=== PATIENT | male | born 1935 | race Caucasian/White ===

== ENCOUNTER 2020-01-03 17:42 | Inpatient (IN) | payer MEDICARE ==
[~2020-01-03] VITALS: Ht 190.5 cm; Wt 111.2 kg
[~2020-01-03 17:42] MED LIST: BACTRIM DS TABL1 TAB PO; BETAPACE 80 MG80 MG PO; COLACE100 MG PO; DOXYCYCLINE HY100 M2 PO; DULCOLAX5 MG PO; FLAGYL500 MG PO; FLOMAX0.4 MG PO; GLUCOPHAGE500 MG PO; K-DUR20 MEQ PO; LASIX20 MG PO; LEVAQUIN500 MG PO; LIPITOR40 MG PO; LISINOPRIL10 MG PO; LORTAB 5/500 TA1 TA2 PO; MOBIC7.5 MG PO; NORCO 7.5-3251 EACH GT; ONGLYZA5 MG PO; PRADAXA75 MG PO; PROTONIX40 MG PO; TYLENOL 325 MG325 MG PO; VESICARE5 MG PO
[2020-01-03] MEDS ORDERED: LISINOPRIL5 MG PO (18:13)
[2020-01-03] MEDS ORDERED: MOBIC7.5 MG PO (18:13)
[2020-01-03] MEDS ORDERED: ELIQUIS5 MG PO (18:13)
[2020-01-03] MEDS ORDERED: GLUCOPHAGE500 MG PO (18:14)
[2020-01-03] MEDS ORDERED: BETAPACE 80 MG80 MG PO (18:14)
[2020-01-03] MEDS ORDERED: K-DUR20 MEQ PO (18:14)
[2020-01-03] MEDS ORDERED: FUROSEMIDE20 MG PO (18:14)
[2020-01-03] MEDS ORDERED: LIPITOR20 MG PO (18:15)
[2020-01-03] MEDS ORDERED: JANUVIA50 MG PO (18:15)
[2020-01-03] MEDS ORDERED: PROTONIX40 MG PO (18:15)
[2020-01-03] MEDS ORDERED: HYDROCODON-ACET15 ML PO (18:16)
[2020-01-03 18:44] LABS: BASOPHILS 0.1 % (0-2); EOSINOPHILS 0.1 % (0-7); HEMATOCRIT 39.5 % (42.0-54.0); HEMOGLOBIN 12.7 g/dL (13.5-17.5); IMMATURE GRANULOCYTES 0.2 % (0-5); LYMPHOCYTES 8.9 % (15-50); MCH 30.2 pg (26.0-34.0); MCHC 32.2 g/dL (31.0-37.0); MEAN PLATELET VOLUME 9.4 fL (7.4-10.4); MONOCYTES 10.5 % (2-11); NEUTROPHILS 80.2 % (40-80); RDW 14.4 % (11.5-14.5); WBC 11.3 10x3/uL (4.8-10.8)
[2020-01-03 18:45] LABS: PLATELET COUNT 165 10x3/uL (130-400)
[2020-01-03 18:55] LABS: INR 1.46 (0.85-1.17); PROTIME 17.6 SECONDS (11.6-15.0)
[2020-01-03 18:56] LABS: APTT 38.6 SECONDS (22.8-39.4)
[2020-01-03 19:02] LABS: CALC OSMOLALITY 276 mosm/kg (275-300); CALCIUM 9.2 mg/dL (8.5-10.1); CARBON DIOXIDE 22.7 mmol/L (21.0-32.0); CHLORIDE - SERUM 102 mmol/L (98-107); CREATININE - SERUM 1.9 mg/dL (0.6-1.3); GLUCOSE 135 mg/dL (74-106); POTASSIUM - SERUM 5.3 mmol/L (3.5-5.1); SODIUM 133 mmol/L (136-145); UREA NITROGEN 37 mg/dL (7-18); eGFR NON AFRICAN AMERICAN 36 mL/min (90-120)
[2020-01-03 19:20] VITALS: BP 105/65
[2020-01-03 19:22] LABS: BILIRUBIN NEGATIVE (NEGATIVE); GLUCOSE NEGATIVE (NEGATIVE); KETONE NEGATIVE (NEGATIVE); NITRITE POSITIVE (NEGATIVE); SPECIFIC GRAVITY 1.015 (1.005-1.020); UROBILINOGEN NORMAL (NORMAL)
[2020-01-03 19:22] LABS: ALKALINE PHOSPHATASE 68 U/L (30-120); ALT (SGPT) 19 U/L (10-68); BILIRUBIN - TOTAL 0.46 mg/dL (0.2-1.3); CKMB 0.7 U/L (0.0-3.6); CREATINE KINASE 39 UL (21-232); MAGNESIUM - SERUM 1.5 mg/dL (1.8-2.4)
[2020-01-03 19:24] LABS: TROPONIN-I < 0.017 ng/mL (0.000-0.060)
[2020-01-03 19:27] LABS: RED CELLS - URINE 0-5 /hpf (0-5); WHITE CELLS - URINE >50 /hpf (NEGATIVE)
[2020-01-03 19:28] LABS: BACTERIA MANY /hpf (NEGATIVE); EPITHELIAL CELLS 0-5 /hpf (0-5)
--- NOTE | 2020-01-03 23:00 | NUR ---
PT FROM ER VIA STRETCHER, PT TRANSFERRED TO BED WITHOUT DIFFICULTY, RESP EVEN AND UNLABORED. NO DISTRESS NOTED. CL IN REACH, SR UP X 2.
--- NOTE | 2020-01-03 23:34 | NUR ---
PROVIDER AND SHAKE LOADER NOTIFED THAT FLOOR IS OUT OF TELEMETRY UNITS. PT WILL BE PUT ON WAITING LIST AT THIS TIME.
[2020-01-04] VITALS (8 sets, daily range): BP systolic 95–123; BP diastolic 48–56; Ht 190.5 cm; Wt 111.2 kg
[2020-01-04] MEDS ORDERED: HYDROCODON-ACE1 EA10 PO (02:38)
--- NOTE | 2020-01-04 03:40 | NUR ---
I have reviewed this patient and I concur with the Shift Assessment completed by the Licensed Practical Nurse today this shift.
[2020-01-04 05:06] LABS: APTT 24.6 SECONDS (22.8-39.4); INR 1.26 (0.85-1.17); PROTIME 15.7 SECONDS (11.6-15.0)
[2020-01-04 05:24] LABS: ANION GAP 9.9 mmol/L (8-16); BILIRUBIN - TOTAL 0.28 mg/dL (0.2-1.3); CALCIUM 8.4 mg/dL (8.5-10.1); CARBON DIOXIDE 21.9 mmol/L (21.0-32.0); CREATININE - SERUM 1.7 mg/dL (0.6-1.3); MAGNESIUM - SERUM 1.6 mg/dL (1.8-2.4); PHOSPHOROUS 3.2 mg/dL (2.5-4.9); POTASSIUM - SERUM 4.8 mmol/L (3.5-5.1); PROTEIN - SERUM 5.4 g/dL (6.4-8.2)
[2020-01-04 05:26] LABS: BASOPHILS 0.3 % (0-2); EOSINOPHILS 1.2 % (0-7); HEMATOCRIT 33.6 % (42.0-54.0); HEMOGLOBIN 10.9 g/dL (13.5-17.5); IMMATURE GRANULOCYTES 0.6 % (0-5); LYMPHOCYTES 21.2 % (15-50); MCH 30.8 pg (26.0-34.0); MCHC 32.4 g/dL (31.0-37.0); MCV 94.9 fL (80.0-100.0); MEAN PLATELET VOLUME 12.2 fL (7.4-10.4); MONOCYTES 17.3 % (2-11); NEUTROPHILS 59.4 % (40-80); RBC 3.54 10x6/uL (4.20-6.10); RDW 14.7 % (11.5-14.5)
[2020-01-04 05:28] LABS: ALBUMIN 2.1 g/dL (3.4-5.0)
[2020-01-04 05:29] LABS: PLATELET COUNT 127 10x3/uL (130-400)
[2020-01-04 17:58] LABS: % SATURATION 8 % (15-55); IRON 17 ug/dl (35-150); TOTAL IRON BIND CAPACITY 210 ug/dl (260-445); UNSAT IRON BIND CAPACITY 193 ug/dl (150-375)
--- NOTE | 2020-01-04 19:00 | NUR ---
REPORT RECEIVED. BEDSIDE SHIFT REPORT COMPLETE. PT UP IN CHAIR. A&O X4, K[place]PE[place]. VOICES NO C/O OR CONCERNS AT THIS TIME. DENIES NEEDS. NO DISTRESS OBSERVED. CALL LIGHT IN REACH. WILL CPOC.
--- NOTE | 2020-01-04 23:43 | NUR ---
ORTHOSTATIC BP: SITTIN/56 STANDIN/53 LAYIN/54
[2020-01-05] VITALS: BP 104/58
--- NOTE | 2020-01-05 04:44 | NUR ---
PT C/O LOWER BACK PAIN 05/24. PROVIDED PRN MEDICATION. AT BEDSIDE. WILL CTM.
[2020-01-05 05:17] VITALS: BP 124/66
[2020-01-05 05:32] LABS: BASOPHILS 0.5 % (0-2); EOSINOPHILS 0.9 % (0-7); HEMATOCRIT 35.9 % (42.0-54.0); HEMOGLOBIN 11.4 g/dL (13.5-17.5); IMMATURE GRANULOCYTES 0.2 % (0-5); LYMPHOCYTES 21.2 % (15-50); MCH 29.8 pg (26.0-34.0); MCHC 31.8 g/dL (31.0-37.0); MCV 93.7 fL (80.0-100.0); MEAN PLATELET VOLUME 9.8 fL (7.4-10.4); MONOCYTES 17.9 % (2-11); NEUTROPHILS 59.3 % (40-80); PLATELET COUNT 151 10x3/uL (130-400); RBC 3.83 10x6/uL (4.20-6.10); RDW 14.2 % (11.5-14.5); WBC 6.4 10x3/uL (4.8-10.8)
[2020-01-05 05:50] LABS: ANION GAP 10.9 mmol/L (8-16); CALCIUM 8.4 mg/dL (8.5-10.1); CARBON DIOXIDE 23.3 mmol/L (21.0-32.0); MAGNESIUM - SERUM 1.5 mg/dL (1.8-2.4); PHOSPHOROUS 2.9 mg/dL (2.5-4.9); POTASSIUM - SERUM 4.2 mmol/L (3.5-5.1)
[2020-01-05 05:51] LABS: CREATININE - SERUM 1.2 mg/dL (0.6-1.3)
--- NOTE | 2020-01-05 07:20 | NUR ---
PT AWAKE AND ORIENTED, SITTING IN RECLINER BESIDE BED. HANY AT BEDSIDE SITTING ON BED. NO COMPLAINTS OR CONCERNS THIS MORNING, ALL QUESTIONS ANSWERED TO THE BEST OF MY ABILITY. CL IN REACH, SRX2.
[2020-01-05 09:49] VITALS: BP 133/64
--- NOTE | 2020-01-05 10:03 | NUR ---
PT AWKAE AND ORIENTED, SITTING IN RECLINER. AT BEDSIDE. TOOK MEDS WITHOUT COMPLICATIONS. NO COMPLLAINTS OR CONCERNS. CL INR EACH,S RX2.
[2020-01-05] MEDS ORDERED: BETAPACE 80 MG80 MG PO ×2 (12:03→14:32)
[2020-01-05] MEDS ORDERED: MACRODANTIN100 MG PO (12:03)
--- NOTE | 2020-01-05 12:25 | NUR ---
INFORMED PT THAT HE WOULD BE DISCHARGING, HE'S VERY HAPPY.
--- NOTE | 2020-01-05 13:39 | NUR ---
PT ESCORTED OUT VIA WHEELCHAIR TO POV, DRIVING.
--- NOTE | 2020-01-06 18:03 | MORECARE ---
CASE MANAGEMENT DISCHARGE SUMMARY PATIENT: MARJAN NAVARRETE UNIT: [id number] ADM DATE: 01/04/20 AGE: 84 : 35 SEX: M ROOM/BED: D.2107 AUTHOR: POPEYE CAMPBELL PHYSICIAN: REFERRING PHYSICIAN: OLGA JORDAN MD DATE OF SERVICE: 01/06/20 Discharge Plan Patient Name: MARJAN NAVARRETE [facility] [facility] 1935 Planned Disposition: Home Anticipated Discharge Date: Discharge Date: 01/05/2020 Expected LOS: Initial Reviewer: [email or web address] Initial Review Date: 01/03/2020 Generated: 01/06/20 7:03 pm Patient Name: MARJAN NAVARRETE Page [id number] at 1803 All edits/amendments must be made on the electronic document DICTATION DATE: 01/06/201802 PLUMBER ASSISTANT: MARII 01/06/201802 RPT#: [id number] DC DATE:01/05/20 STATUS: DIS IN [facility] [address] [place] [address] END OF REPORT
--- NOTE | 2020-01-06 18:10 | MORECARE ---
CASE MANAGEMENT DISCHARGE SUMMARY PATIENT: MARJAN NAVARRETE UNIT: [id number] ADM DATE: 01/04/20 AGE: 84 : 35 SEX: M ROOM/BED: D.2105 AUTHOR: SHANNAN,DOC PHYSICIAN: REFERRING PHYSICIAN: OLGA JORDAN MD DATE OF SERVICE: 01/06/20 Discharge Plan Patient Name: MARJAN NAVARRETE Facility: [facility]:[place] : 1935 Planned Disposition: Home Anticipated Discharge Date: Discharge Date: 01/05/2020 Expected LOS: Initial Reviewer: [email or web address] Initial Review Date: 01/03/2020 Generated: 01/06/20 7:10 pm Comments DCP- Discharge Planning Updated by [email or web address]: Tanya Kulkarni on 01/06/20 5:[address] LATE ENTRY 01/05/20 Patient Name: MARJAN NAVARRETE Admission Status: ER Accout number: [id number] Admission Date: 01-04-2020 : 1935 Admission Diagnosis: Attending: OLGA JORDAN Current LOS: 1 Anticipated DC Date: Planned Disposition: Home Primary Insurance: MEDICARE A & B Discharge Planning Comments: CM met with patient to complete initial dc planning assessment. CM educated patient on the CM role and verbal consent given by patient to complete assessment. Patient lives at home with family. Patient is independent. At discharge patient plans to return home and feels this is a safe discharge. CM discussed availability of home health, rehab services, and medical equipment. Patient will have family to transport home. Patient denied known discharge needs at this time. CM will continue to follow and will assist as needed with dc plans/needs. [facility] Nurse Practitioner: Tanya Kulkarni DCPIA - Discharge Planning Initial Assessment Updated by [email or web address]: Tanya Kulkarni on 01/06/20 6:06 pm * Is the patient Alert and Oriented? Yes * How many steps to enter\exit or inside your home? * PCP Paul ? * Pharmacy [facility] [place] * Preadmission Environment Home with Family * ADLs Independent * Other Equipment rollator, cane * List name and contact numbers for known caregivers / representatives who currently or will assist patient after discharge: Claudia Navarrete - spouse - [phone], * Verbal permission to speak to the caregivers and representatives has been obtained from the patient. Yes * Community resources currently utilized None * Additional services required to return to the preadmission environment? No * Can the patient safely return to the preadmission environment? Yes * Has this patient been hospitalized within the prior 30 days at any hospital? No Last DP export: 01/06/20 5:03 p Patient Name: MARJAN NAVARRETE Page [id number] at 1810 All edits/amendments must be made on the electronic document DICTATION DATE: 01/06/201809 CONCRETE CONVEYOR OPERATOR: MARII 01/06/201809 RPT#: [id number] DC DATE:01/05/20 STATUS: DIS IN [facility] [address] [place] [address] END OF REPORT
== END 2020-01-05 13:39 | disposition home or self-care (01) | DRG 683 ==
LOC: D.ER 17:42 → D.M2 21:01 → OBSVTIME 21:01 → D.M2 21:01
PROVIDERS: Family Medicine; ADMIT Internal Medicine Nephrology; ATTEND Internal Medicine Nephrology
DX: N17.9 Acute kidney failure, unspecified (principal); E87.1 Hypo-osmolality and hyponatremia; I48.20 Chronic atrial fibrillation, unspecified; N39.0 Urinary tract infection, site not specified; E44.0 Moderate protein-calorie malnutrition; E83.42 Hypomagnesemia; J32.9 Chronic sinusitis, unspecified; K21.9 Gastro-esophageal reflux disease without esophagitis; I10 Essential (primary) hypertension; D64.9 Anemia, unspecified; E78.5 Hyperlipidemia, unspecified; I25.10 Atherosclerotic heart disease of native coronary artery without angina pectoris; E11.9 Type 2 diabetes mellitus without complications; Z68.29 Body mass index [BMI] 29.0-29.9, adult; E87.5 Hyperkalemia; D69.6 Thrombocytopenia, unspecified; B96.20 Unspecified Escherichia coli [E. coli] as the cause of diseases classified elsewhere; Z95.0 Presence of cardiac pacemaker